=== PATIENT | female | born 1950 | race Caucasian/White ===

== ENCOUNTER 2016-12-31 11:44 | Emergency (ER) | payer OTHER ==
[~2016-12-31] VITALS: Ht 162.6 cm; Wt 70.0 kg
[2016-12-31 11:50] VITALS: BP 129/64; PULSE 64; RESP 18; TEMP 97.2; O2SAT 96
[2016-12-31] MEDS ORDERED: TRIL135C PO (12:35)
[2016-12-31] MEDS ORDERED: PRED5PAK PO (12:35)
[2016-12-31] MEDS ORDERED: ALPR0.5T3 PO (12:35)
[2016-12-31] MEDS ORDERED: AMLO2.5T PO (12:35)
[2016-12-31] MEDS ORDERED: METO50TA PO (12:35)
[2016-12-31] MEDS ORDERED: LOSA50TA2 PO (12:35)
[2016-12-31] MEDS ORDERED: COLE1PAK PO (12:35)
[2016-12-31] MEDS ORDERED: ASPI1TAB69 PO (12:35)
[2016-12-31] MEDS ORDERED: PLAV75TA29 PO (12:35)
[2016-12-31] MEDS ORDERED: LIDOCAINE 1%/EPINEPHrine 1:100,000 SOLN 20 ML VIAL INFIL ONE (12:45)
--- NOTE | 2016-12-31 13:13 | PD ---
HPI Chief Complaint: Nosebleed Time Seen by Provider: 12:20 Travel History International Travel<30 days: No Contact w/Intl Traveler<30days: No Traveled to known affect area: No History of Present Illness HPI 66-year-old female complains of nosebleed. Patient states that she has intermittent nosebleed from the right side the nose since this morning. Patient denies any recent injury. Patient has history of CAD status post stent placement. Last stent placement in 2005. Patient's on aspirin 81 mg daily and Plavix daily. Patient was recently put on oral steroids for foot fungus. Patient denies any headache. Patient denies any chest pain or shortness of breath. Patient denies abdominal pain. Patient denies any focal weakness or numbness of extremity. Patient states that her nose has been congested and she has been rubbing her nose frequently recently. PFSH Past Medical History Hx Anticoagulant Therapy: Yes (ASPIRIN) Cardiovascular Problems: Yes (CAD, STENT 2005) Diminished Hearing: No Influenza Vaccination: Yes ?: Not Tubal Ligation: Yes Social History Alcohol Use: Yes (wine) Tobacco Use: No Allergies-Medications (Allergen,Severity, Reaction): Coded Allergies: No Known Allergies (Unverified , 12/31/16) Reported Meds & Prescriptions Reported Meds & Active Scripts Active Reported Prednisone (21) 5 mg tab Dose Pack (Prednisone) 5 Mg Dspk 5 Mg PO DIRECTED Alprazolam 0.5 Mg Tab 0.5 Mg PO BID PRN Amlodipine (Amlodipine Besylate) 2.5 Mg Tab 2.5 Mg PO DAILY Aspirin 81 Mg Tabdr 81 Mg PO DAILY Plavix (Clopidogrel Bisulfate) 75 Mg Tab 75 Mg PO DAILY Trilipix (Choline Fenofibrate DR) 135 Mg Capdr 135 Mg PO DAILY Losartan-Hydrochlorothiazide 50-12.5 Mg Tab 1 Tab PO DAILY Metoprolol Tartrate 50 Mg Tab 50 Mg PO BID Welchol (Colesevelam HCl) 3.75 Gm Pkt 3.75 Gm PO DAILY Review of Systems General / Constitutional: No: Fever Eyes: No: Visual changes HENT: Positive: Nosebleed, No: Headaches Cardiovascular: No: Chest Pain or Discomfort Respiratory: No: Shortness of Breath Gastrointestinal: No: Abdominal Pain Genitourinary: No: Dysuria Musculoskeletal: No: Pain Skin: No Rash Neurologic: No: Weakness Psychiatric: No: Depression Endocrine: No: Polydipsia Hematologic/Lymphatic: No: Easy Bruising Physical Exam Narrative GENERAL: Well-nourished, well-developed patient. SKIN: Warm and dry. HEAD: Normocephalic. EYES: No scleral icterus. No injection or drainage. Patient has active nosebleed from the right side the nose. The bleeding is both anterior and posterior. NECK: Supple, trachea midline. No JVD or lymphadenopathy. CARDIOVASCULAR: Regular rate and rhythm without murmurs, gallops, or rubs. RESPIRATORY: Breath sounds equal bilaterally. No accessory muscle use. GASTROINTESTINAL: Abdomen soft, non-tender, nondistended. MUSCULOSKELETAL: No cyanosis, or edema. BACK: Nontender without obvious deformity. No CVA tenderness. Neurologic exam normal. Data Data Last Documented VS Vital Signs Date Time Temp Pulse Resp B/P Pulse Ox O2 Delivery O2 Flow Rate FiO2 12/31/16 11:50 97.2 64 18 129/64 96 Orders Lidocai-Epi 1%-1:100,000 Inj (Xylocaine- (12/31/16 12:45) MDM Medical Decision Making Medical Screen Exam Complete: Yes Emergency Medical Condition: Yes Differential Diagnosis Differential diagnosis including epistaxis, coagulopathy. Narrative Course 66-year-old female with nosebleed since this morning. Patient has history of CAD status post stent placement on Plavix and aspirin daily. Patient recently started on steroids. I spoke with Dr. Booker, her silk spotter. Advised to hold Plavix for 1 week. Procedures Procedure Narrative Lidocaine with epinephrine spray to the right side the nose. Rhino Rocket inserted right side the nose. Diagnosis Primary Impression: Epistaxis Patient Instructions: General Instructions Additional Instructions: Take medications as directed. Stop Plavix. Continue with aspirin. Follow-up with ENT in 3 days for acting removal. Return if persistent or excessive bleeding. Med/Other Pt SpecificInfo: Prescription(s) given Scripts Hydrocodone-Acetaminophen ([place])5-325 mg Tab1 Tab PO Q6H PRN (PAIN) #20 TAB Prov:Handy Heck MD 12/31/16 Amoxicillin 500 Mg [id number] Mg PO TID #15 TAB Prov:Handy Heck MD 12/31/16 Disposition: 01 DISCHARGE HOME Condition: Stable Handy Heck MD Dec 31, 2016 13:13
[2016-12-31] MEDS ORDERED: NORC5TAB PO (13:20)
[2016-12-31] MEDS ORDERED: AMOX500T PO (13:20)
[2016-12-31 13:35] VITALS: BP 143/60; PULSE 60; RESP 18; O2SAT 97
[2016-12-31 14:10] VITALS: BP 171/58
== END 2016-12-31 14:11 | disposition home or self-care (01) ==
LOC: PHED 11:44
DX: R04.0 Epistaxis (principal); I25.10 Atherosclerotic heart disease of native coronary artery without angina pectoris; Z79.01 Long term (current) use of anticoagulants; Z79.82 Long term (current) use of aspirin; Z95.818 Presence of other cardiac implants and grafts
CPT/HCPCS: 30901

== ENCOUNTER 2017-01-03 10:22 | Emergency (ER) | payer OTHER ==
[~2017-01-03] VITALS: Ht 165.1 cm; Wt 68.2 kg
[~2017-01-03 10:22] MED LIST: ALPR0.5T3 PO; AMLO2.5T PO; AMOX500T PO; ASPI1TAB69 PO; COLE1PAK PO; LOSA50TA2 PO; METO50TA PO; NORC5TAB PO; PLAV75TA29 PO; PRED5PAK PO; TRIL135C PO
[2017-01-03 10:36] VITALS: BP_SYST 80; BP_SYST 85; BP_DIAS 44; PULSE 66; RESP 16; TEMP 97.8; O2SAT 99
[2017-01-03 11:03] VITALS: BP 92/45
--- NOTE | 2017-01-03 11:15 | PD ---
HPI Chief Complaint: ENT Complaint Time Seen by Provider: 10:51 Travel History International Travel<30 days: No Contact w/Intl Traveler<30days: No Traveled to known affect area: No History of Present Illness HPI Patient is a 66-year-old female who presents to emergency room for Rhino Rocket removal. Patient reports that she was seen in emergency room 3 days ago as she had a nosebleed which would not stop bleeding. Reports that a rhino rocket was placed to her right nares and she was told to return to the ER for Rhino Rocket removal. Patient did report taking a baby aspirin as well as Plavix daily. Patient reports that after she left the emergency room, she did call her bariatric coordinator, Dr. Woods - reports that he held her Plavix for 7 days. Patient reports that not had any nosebleeds in the past 3 days, reports that she completed full course of antibiotics prescribed to her and her ER visit. She is here for removal of Rhino Rocket. Patient was hypotensive in the emergency room triage, patient reports that she just took all of her blood pressure medications prior to coming to the emergency room. Patient denies lightheadedness or dizziness, denies chest pain or shortness of breath. She reports no complaints at this time and reports "I feel fine." PFSH Past Medical History Hx Anticoagulant Therapy: Yes (plavix ,asa 81 mg) Cardiovascular Problems: Yes (htn on meds, stent placement x 1 ) Diminished Hearing: No Tetanus Vaccination: < 5 Years Influenza Vaccination: Yes ?: Not Tubal Ligation: Yes Past Surgical History Tympanostomy Tube: Yes Social History Alcohol Use: Yes (wine) Tobacco Use: No Substance Use: No Allergies-Medications (Allergen,Severity, Reaction): Coded Allergies: Norflex (Verified Allergy, Intermediate, twitching muscles, 01/03/17) Reported Meds & Prescriptions Reported Meds & Active Scripts Active [place] (Hydrocodone-Acetaminophen) 5-325 mg Tab 1 Tab PO Q6H PRN Amoxicillin 500 Mg Tab 500 Mg PO TID Reported Prednisone (21) 5 mg tab Dose Pack (Prednisone) 5 Mg Dspk 5 Mg PO DIRECTED Alprazolam 0.5 Mg Tab 0.5 Mg PO BID PRN Amlodipine (Amlodipine Besylate) 2.5 Mg Tab 2.5 Mg PO DAILY Aspirin 81 Mg Tabdr 81 Mg PO DAILY Plavix (Clopidogrel Bisulfate) 75 Mg Tab 75 Mg PO DAILY Trilipix (Choline Fenofibrate DR) 135 Mg Capdr 135 Mg PO DAILY Losartan-Hydrochlorothiazide 50-12.5 Mg Tab 1 Tab PO DAILY Metoprolol Tartrate 50 Mg Tab 50 Mg PO BID Welchol (Colesevelam HCl) 3.75 Gm Pkt 3.75 Gm PO DAILY Review of Systems General / Constitutional: No: Fever Eyes: No: Visual changes HENT: No: Headaches Cardiovascular: No: Chest Pain or Discomfort Respiratory: No: Shortness of Breath Gastrointestinal: No: Abdominal Pain Genitourinary: No: Dysuria Musculoskeletal: No: Pain Skin: No Rash Neurologic: No: Weakness Psychiatric: No: Depression Endocrine: No: Polydipsia Hematologic/Lymphatic: No: Easy Bruising Physical Exam Narrative GENERAL: No acute distress, nontoxic SKIN: Warm and dry. HEAD: Atraumatic. Normocephalic. EYES: No injection or drainage. ENT: No nasal bleeding or discharge. Mucous membranes pink and moist. Rhino Rocket and right nares, Rhino Rocket was removed easily, no signs of active bleeding to right nares NECK: Trachea midline. No JVD. CARDIOVASCULAR: Regular rate and rhythm. No murmur appreciated. RESPIRATORY: No accessory muscle use. Clear to auscultation. Breath sounds equal bilaterally. GASTROINTESTINAL: Abdomen soft, non-tender, nondistended. Hepatic and splenic margins not palpable. MUSCULOSKELETAL: No obvious deformities. No clubbing. No cyanosis. No edema. NEUROLOGICAL: Awake and alert. No obvious cranial nerve deficits. Motor grossly within normal limits. Normal speech. PSYCHIATRIC: Appropriate mood and affect; insight and judgment normal. Data Data Last Documented VS Vital Signs Date Time Temp Pulse Resp B/P Pulse Ox O2 Delivery O2 Flow Rate FiO2 01/03/17 11:23 118/51 01/03/17 10:36 97.8 66 16 99 [facility] Medical Decision Making Medical Screen Exam Complete: Yes Emergency Medical Condition: Yes Interpretation(s) Vital Signs Date Time Temp Pulse Resp B/P Pulse Ox O2 Delivery O2 Flow Rate FiO2 01/03/17 10:36 97.8 66 16 85/44 99 80/44 Differential Diagnosis Rhino Rocket removal Narrative Course 66-year-old female who was seen in emergency room 3 days ago for nosebleed after being on a baby aspirin and Plavix, reports that she had a Rhino Rocket placed to her right nares 3 days ago. Patient reports that she has had no complications after this Rhino Rocket was placed, patient here for removal of Rhino Rocket. Vital Signs Date Time Temp Pulse Resp B/P Pulse Ox O2 Delivery O2 Flow Rate FiO2 01/03/17 10:36 97.8 66 16 85/44 99 80/44 Patient was found to be hypotensive while in the emergency room triage with a blood pressure of 85/44. Patient asymptomatic at this time with no complaints. Reports that "I feel fine." Blood pressure while in the emergency room 92/ 45. Patient asymptomatic, will monitor patient at this time. Patient with no complaints at this time, blood pressure now 118/51. Episode of hypotension could possibly be from medication reaction as she just took all her medications. Patient is afebrile while in the emergency room, patient with no complaints at this time. Signs and symptoms of when to return to the emergency room was reviewed patient in detail. Procedures Procedure Narrative rhinorocket removal Patient had a rhinorocket to right nares. balloons were deflated and rhinorocket was removed without difficultly. Patient with no complications after procedure Diagnosis Primary Impression: re-evaluation of nose bleed with rhino rocket removal Additional Impression: Hypotension Qualified Code: I95.9 - Hypotension, unspecified hypotension type Patient Instructions: General Instructions Additional Instructions: Please follow-up with ENT as outpatient Return to the emergency room as needed Return to emergency with symptoms return Disposition: 01 DISCHARGE HOME Condition: Stable Eva Brand DO Jan 03, 2017 11:15
[2017-01-03 11:23] VITALS: BP 118/51
== END 2017-01-03 11:54 | disposition home or self-care (01) ==
LOC: PHEFT 10:22
DX: Z48.00 Encounter for change or removal of nonsurgical wound dressing (principal); I95.9 Hypotension, unspecified; Z79.01 Long term (current) use of anticoagulants
CPT/HCPCS: 99281

== ENCOUNTER 2018-01-08 20:26 | Emergency (ER) | payer OTHER ==
[~2018-01-08] VITALS: Ht 165.1 cm; Wt 74.0 kg
[~2018-01-08 20:26] MED LIST changes: -COLE1PAK PO; +WELC3.753 PO
[2018-01-08 21:04] VITALS: BP 161/73; PULSE 68; RESP 18; TEMP 97.5; O2SAT 97
[2018-01-08] MEDS ORDERED: SILVER NITR/POTASSIUM NITRATE APPLICATORS TOPICAL ONE (22:15)
--- NOTE | 2018-01-08 22:23 | PD ---
HPI Chief Complaint: Bleeding Time Seen by Provider: 22:05 Travel History International Travel<30 days: No Contact w/Intl Traveler<30days: No Traveled to known affect area: No History of Present Illness HPI 67-year-old female with PMH of CAD, status post stenting, hypertension, on Plavix presents to the ED for evaluation of epistaxis. Onset around 8:00 tonight after she blew her nose. She denies any trauma to the area. She's been holding pressure since with no improvement of symptoms. She endorses a similar episode in the past and required nasal packing. PFSH Past Medical History Hx Anticoagulant Therapy: Yes (plavix ,asa 81 mg) Cardiovascular Problems: Yes (htn on meds, stent placement x 1 ) Diminished Hearing: No Tetanus Vaccination: < 5 Years Influenza Vaccination: Yes Tubal Ligation: Yes Past Surgical History Tympanostomy Tube: Yes Social History Alcohol Use: Yes (wine) Tobacco Use: No Substance Use: No Allergies-Medications (Allergen,Severity, Reaction): Coded Allergies: orphenadrine (Unverified Allergy, Intermediate, twitching muscles, 06/11/17 ) Reported Meds & Prescriptions Reported Meds & Active Scripts Active [place] (Hydrocodone-Acetaminophen) 5-325 mg Tab 1 Tab PO Q6H PRN Reported Prednisone (21) 5 mg tab Dose Pack (Prednisone) 5 Mg Dspk 5 Mg PO DIRECTED Alprazolam 0.5 Mg Tab 0.5 Mg PO BID PRN Amlodipine (Amlodipine Besylate) 2.5 Mg Tab 2.5 Mg PO DAILY Aspirin 81 Mg Tabdr 81 Mg PO DAILY Plavix (Clopidogrel Bisulfate) 75 Mg Tab 75 Mg PO DAILY Trilipix (Choline Fenofibrate DR) 135 Mg Capdr 135 Mg PO DAILY Losartan-Hydrochlorothiazide 50-12.5 Mg Tab 1 Tab PO DAILY Metoprolol Tartrate 50 Mg Tab 50 Mg PO BID Welchol (Colesevelam HCl) 3.75 Gm Pkt 3.75 Gm PO DAILY Review of Systems Except as stated in HPI: all other systems reviewed are Neg Physical Exam Narrative GENERAL: Well-nourished, well-developed white female in no acute distress. SKIN: Focused skin assessment warm/dry. HEAD: Normocephalic. EYES: No scleral icterus. No injection or drainage. ENT: Pearly schneider tympanic movements bilaterally. Oropharynx without erythema, edema, exudate. Moderate bleeding from the left ala. NECK: Supple, trachea midline. No JVD or lymphadenopathy. CARDIOVASCULAR: Regular rate and rhythm without murmurs, gallops, or rubs. RESPIRATORY: Breath sounds equal bilaterally. No accessory muscle use. GASTROINTESTINAL: Abdomen soft, non-tender, nondistended. MUSCULOSKELETAL: No cyanosis, or edema. BACK: Nontender without obvious deformity. No CVA tenderness. Data Data Last Documented VS Vital Signs Date Time Temp Pulse Resp B/P (MAP) Pulse Ox O2 Delivery O2 Flow Rate FiO2 01/08/18 23:14 01/08/18 21:04 97.5 68 18 97 Orders Orders Silver Nitrate Applicators (Silver Nitra (01/08/18 22:15) Oxymetazoline 0.05% Mian Wilburton (Afrin 0.0 (01/08/18 22:30) Ed Discharge Order (01/08/18 23:02) MDM Medical Decision Making Medical Screen Exam Complete: Yes Emergency Medical Condition: Yes Differential Diagnosis Epistaxis versus hypertension versus nasal trauma versus other Narrative Course 67-year-old female with PMH of CAD, status post stenting, hypertension, on Plavix presents to the ED for evaluation of epistaxis. Onset around 8:00 tonight after she blew her nose. She denies any trauma to the area. She's been holding pressure since with no improvement of symptoms. She endorses a similar episode in the past and required nasal packing. Vitals reviewed. On exam the patient has no tenderness to palpation of the nasal bones. There is blood trickling from the left alert. I administered 2 puffs of Afrin with no resolution of her symptoms. Dr. Mccarthy inserted bilateral nasal packing. See his procedure note for details. Patient was monitored for further bleeding in the ED for approximately 35 minutes. She is instructed to return to the ED or follow-up with ENT in 3 days for packing removal. She indicated understanding of the instructions. She is stable and discharged home. Diagnosis Primary Impression: Epistaxis Referrals: Kavon Wall MD Ear / Nose / Throat Specialist Additional Instructions: Rest, hydrate. Do not remove the packing on your own. Return to the ED or follow up with the ENT in 3 days for packing removal. Return to the ED for worsening symptoms or any urgent or emergent medical condition. Disposition: 01 DISCHARGE HOME Condition: Stable Arleth Ledesma Jan 08, 2018 22:23
[2018-01-08] MEDS ORDERED: OXYMETAZOLINE HCL 0.05% 15 ML NASAL SPRAY NASAL ONE (22:30)
--- NOTE | 2018-01-08 22:56 | PD ---
Data Data Last Documented VS Vital Signs Date Time Temp Pulse Resp B/P (MAP) Pulse Ox O2 Delivery O2 Flow Rate FiO2 01/08/18 23:14 01/08/18 21:04 97.5 68 18 97 Orders Orders Silver Nitrate Applicators (Silver Nitra (01/08/18 22:15) Oxymetazoline 0.05% Mian Morrison (Afrin 0.0 (01/08/18 22:30) Ed Discharge Order (01/08/18 23:02) MDM Supervised Visit with SOFIE: Yes Narrative Course I, Dr. Mccarthy, have reviewed the advance practice practitioner's documentation and am in agreement, met with the patient face to face, made the diagnosis, and the medical decision making was done by me. *My assessment and Findings: Patient seen and examined by me in addition to Magdaleno Ledesma PA-C, she has a slow anterior nosebleed with no evidence of posterior bleeding, on aspirin and Plavix, there has been some cold weather recently and I suspect there is some irritation of the mucous membranes, she was uncontrolled with Afrin, on my examination I do not see any discrete point of bleeding that is amenable to cauterization, she was packed bilaterally with 5.5 cm Rhino Rocket's, these were coated with Afrin prior to insertion. She was observed in the emergency department for 15 minutes prior minutes after packing. Bleeding is much better in control. Discussed return to ED criteria, ENT or ED in 2-3 days for packing removal. Diagnosis Primary Impression: Epistaxis Referrals: Vamshi Mckinnon MD Disposition: 01 DISCHARGE HOME Condition: Stable Andrew Mccarthy MD Jan 08, 2018 22:56
== END 2018-01-08 23:17 | disposition home or self-care (01) ==
LOC: PHEFT 20:26
DX: R04.0 Epistaxis (principal); I25.10 Atherosclerotic heart disease of native coronary artery without angina pectoris; I10 Essential (primary) hypertension; Z79.01 Long term (current) use of anticoagulants
CPT/HCPCS: 30901

== ENCOUNTER 2018-01-11 08:27 | Emergency (ER) | payer OTHER ==
[~2018-01-11] VITALS: Ht 165.1 cm; Wt 70.7 kg
[~2018-01-11 08:27] MED LIST changes: -AMOX500T PO
[2018-01-11 08:33] VITALS: BP 156/67; PULSE 89; RESP 16; TEMP 97.3; O2SAT 96
--- NOTE | 2018-01-11 08:55 | PD ---
HPI . Packing removal Chief Complaint: ENT Complaint Time Seen by Provider: 08:41 Travel History International Travel<30 days: No Contact w/Intl Traveler<30days: No Traveled to known affect area: No History of Present Illness HPI The patient is here to have packing removed from both nostrils. Her nose was packed on which was 3 days ago. She reports no further problems except that she cannot breathe through her nose and this is causing her difficulty sleeping. There has been no further bleeding. The patient is on Plavix. PFSH Past Medical History Hx Anticoagulant Therapy: Yes Cardiovascular Problems: Yes (htn on meds, [place] with one stent) Diminished Hearing: No ?: Not Tubal Ligation: Yes Past Surgical History Tympanostomy Tube: Yes Social History Alcohol Use: Yes (wine) Tobacco Use: No Substance Use: No Allergies-Medications (Allergen,Severity, Reaction): Coded Allergies: orphenadrine (Unverified Allergy, Intermediate, twitching muscles, 01/11/18 ) Reported Meds & Prescriptions Reported Meds & Active Scripts Active [place] (Hydrocodone-Acetaminophen) 5-325 mg Tab 1 Tab PO Q6H PRN Reported Prednisone (21) 5 mg tab Dose Pack (Prednisone) 5 Mg Dspk 5 Mg PO DIRECTED Alprazolam 0.5 Mg Tab 0.5 Mg PO BID PRN Amlodipine (Amlodipine Besylate) 2.5 Mg Tab 2.5 Mg PO DAILY Aspirin 81 Mg Tabdr 81 Mg PO DAILY Plavix (Clopidogrel Bisulfate) 75 Mg Tab 75 Mg PO DAILY Trilipix (Choline Fenofibrate DR) 135 Mg Capdr 135 Mg PO DAILY Losartan-Hydrochlorothiazide 50-12.5 Mg Tab 1 Tab PO DAILY Metoprolol Tartrate 50 Mg Tab 50 Mg PO BID Welchol (Colesevelam HCl) 3.75 Gm Pkt 3.75 Gm PO DAILY Review of Systems Except as stated in HPI: all other systems reviewed are Neg Physical Exam Narrative GENERAL: Awake and alert and in no acute distress. SKIN: Warm and dry. HEAD: Normocephalic/atraumatic. EYES: Pupils are equal. Extraocular movements are intact. ENT: Bilateral Rhino Rocket's in place. No active bleeding. The Rhino Rocket' s were removed in the nose was reexamined. Kiesselbach's plexus is hyperemic bilaterally. There is no active bleeding. NECK: Normal range of motion. RESPIRATORY: Nonlabored respirations. MUSCULOSKELETAL: Atraumatic. NEUROLOGICAL: Nonfocal. PSYCHIATRIC: Appropriate mood and affect. Data Data Last Documented VS Vital Signs Date Time Temp Pulse Resp B/P (MAP) Pulse Ox O2 Delivery O2 Flow Rate FiO2 01/11/18 08:33 97.3 89 16 156/67 (96) 96 MDM Medical Decision Making Medical Screen Exam Complete: Yes Emergency Medical Condition: Yes Differential Diagnosis Differential diagnosis includes but is not limited to epistaxis due to an upper respiratory infection, coagulopathy, local trauma, nasal fracture Narrative Course This patient is here for packing removal. The packing has been removed. Kiesselbach's plexus is hyperemic bilaterally without active bleeding. The patient has been given instructions in methods to keep her mucous membranes are moist. Specifically, a humidifier, a saline nasal spray and Vaseline. She has also been given instructions in how to control the bleeding should it recur. Specifically, she should keep Afrin on hand. If the bleeding recurs she should spray Afrin in her nose, place a cotton ball in her nose and then sit upright and hold the nose for 10 minutes. If this does not control the bleeding, she should return here. Diagnosis Primary Impression: Epistaxis Patient Instructions: General Instructions Departure Forms: Tests/Procedures Additional Instructions: Use a saline nasal spray twice daily to keep your mucous membranes moist. You can also coat the inside of your nose with Vaseline to keep it moist. A humidifier is also a good idea. Keep Afrin on hand in case it bleeds again. If bleeding occurs, squirt several sprays of Afrin into the side that is bleeding then put cotton balls in your nose, sit upright and pinch for 10 solid minutes. This will likely control the bleeding. If it does not, return here. Disposition: 01 DISCHARGE HOME Condition: Stable Makayla Maurice MD Jan 11, 2018 08:55
== END 2018-01-11 09:04 | disposition home or self-care (01) ==
LOC: PHED 08:27
DX: Z48.00 Encounter for change or removal of nonsurgical wound dressing (principal)
CPT/HCPCS: 99281